=== PATIENT | male | born 1985 | race Caucasian/White ===

== ENCOUNTER 2022-09-07 11:27 | Emergency (ER) | payer OTHER, SELFPAY ==
--- NOTE | ~2022-09-07 | XR_ITS ---
EXAMINATION: XR CHEST CLINICAL INFORMATION: Shortness of breath, cough and wheezing. COMPARISON: Chest and RIBS dated 08/07/2012. TECHNIQUE: 2 views of the chest were obtained. FINDINGS: No significant abnormality is noted involving the heart, lungs, mediastinum, bony thorax or soft tissues. XR/XR chest 2V IMPRESSION: No acute cardiopulmonary process.
[2022-09-07 12:20] VITALS: BP 120/85; PULSE 78; RESP 18; TEMP 36.8; O2SAT 99; BMI 20.3
--- NOTE | 2022-09-07 12:20 | ED.ASTHMA ---
HPI - Asthma General Chief Complaint: Dyspnea <MULUGETA Ford - Last Filed: 09/07/22 12:24> Stated Complaint: Asthma <MULUGETA Ford - Last Filed: 09/07/22 12:24> Time Seen by Provider: 09/07/22 13:05 <MULUGETA Ford - Last Filed: 09/07/22 12:24> Source: patient <Iris Jennings NP - Last Filed: 09/07/22 14:34> Mode of arrival: ambulatory <Iris Jennings NP - Last Filed: 09/07/22 14:34> Limitations: no limitations <Iris Jennings NP - Last Filed: 09/07/22 14:34> History of Present Illness HPI Narrative: 37-year-old male past medical history of asthma presents to the emergency department today with complaints of sore throat, congestion, and difficulty breathing. He believes he is having an asthma attack. He states he last used his albuterol nebulizer at home at 7:00 a.m. this morning with moderate effect and reduction in symptoms. He states he smokes both tobacco and marijuana and smoked this morning. He denies any known illness, sick contacts, environmental exposures, fever, chills, chest pain, abdominal pain, constipation, or diarrhea. <Iris Jennings NP - Last Filed: 09/07/22 14:34> MD complaint: asthma attack <Iris Jennings NP - Last Filed: 09/07/22 14:34> Onset (ago): day(s) (1) <Iris Jennings NP - Last Filed: 09/07/22 14:34> Severity: moderate <Iris Jennings NP - Last Filed: 09/07/22 14:34> Context: none known <Iris Jennings NP - Last Filed: 09/07/22 14:34> Associated symptoms: dry cough <Iris Jennings NP - Last Filed: 09/07/22 14:34> Related Data Current Asthma Therapy: inhaled bronchodilator <Iris Jennings NP - Last Filed: 09/07/22 14:34> Home Medications: Previous Rx's Medication Instructions Recorded albuterol sulfate 2.5 mg/3 mL 2.5 mg (3 mL) inhalation Q4-6H PRN 09/07/22 (0.083 %) solution for nebulization shortness of breath or wheezing #90 mL albuterol sulfate 90 mcg/actuation 1 inh inhalation Q6H PRN shortness 09/07/22 aerosol inhaler of breath or wheezing #6.7 grams prednisone 20 mg tablet 60 mg PO BID 5 days #30 tabs 09/07/22 <MULUGETA Ford - Last Filed: 09/07/22 12:24> Allergies/Adverse Reactions: Allergies Allergy/AdvReac Type Severity Reaction Status Date / Time No Known Drug Allergies Allergy Mild NONE Unverified 06/07/20 15:40 [NO KNOWN DRUG ALLERGIES] <MULUGETA Ford - Last Filed: 09/07/22 12:24> Review of Systems Review of Systems: In addition to documented HPI above, the additional ROS was obtained: Constitutional: No Weight loss, No Fever, No Chills ENT/Mouth: No Ear Pain, No Sinus Pain, No Hoarseness, No sore throat, No Rhinorrhea, No Swallowing Difficulty Cardiovascular: No Chest Pain Respiratory: No Cough, No Sputum, No Wheezing Gastrointestinal: No Nausea, No Vomiting, No Diarrhea, No Constipation, No Abdominal pain Musculoskeletal: No joint pain, No Myalgias, No Joint Swelling Skin: No Skin Lesions, No rash Neuro: No Weakness, No Numbness, No Paresthesias <Iris Jennings NP - Last Filed: 09/07/22 14:34> Yes all other systems are reviewed and are negative <Iris Jennings NP - Last Filed: 09/07/22 14:34> [facility] Past Medical History Attestation statement: The following information was validated with the patient. <Iris Jennings NP - Last Filed: 09/07/22 14:34> Source: old records reviewed <Iris Jennings NP - Last Filed: 09/07/22 14:34> Social History Social History: Social History Advance Directives: No Advance Directives Information Provided: No <MULUGETA Ford - Last Filed: 09/07/22 12:24> Physical Exam Vital Signs: Vital Signs: Last Vital Signs Temp 98.2 F 09/07/22 12:20 Pulse 78 09/07/22 12:20 Resp 18 09/07/22 12:20 BP 120/85 09/07/22 12:20 Pulse Ox 99 09/07/22 12:20 O2 Del Method 09/07/22 12:20 BMI result Body Mass Index 20.3 <MULUGETA Ford - Last Filed: 09/07/22 12:24> Vital Signs: Last Vital Signs Temp 98.2 F 09/07/22 12:20 Pulse 78 09/07/22 12:20 Resp 18 09/07/22 12:20 BP 120/85 09/07/22 12:20 Pulse Ox 99 09/07/22 12:20 O2 Del Method 09/07/22 12:20 BMI result Body Mass Index 20.3 <Iris Jennings NP - Last Filed: 09/07/22 14:34> Const: General: cooperative, alert and awake <Iris Jennings LUNCHROOM ATTENDANT - Last Filed: 09/07/22 14:34> Nutritional Appearance: average body habitus <Iris Jennings NP - Last Filed: 09/07/22 14:34> Orientation/consciousness: patient oriented x3 <Iris Jennings NP - Last Filed: 09/07/22 14:34> Limitations: no limitations <Iris Jennings NP - Last Filed: 09/07/22 14:34> HEENT: Head: Yes normal to inspection and Yes atraumatic <Iris Jennings LUNCHROOM ATTENDANT - Last Filed: 09/07/22 14:34> Ears: hearing grossly normal bilaterally <Iris Jennings NP - Last Filed: 09/07/22 14:34> General nose exam: Normal external nose present <Iris Jennings NP - Last Filed: 09/07/22 14:34> Face and sinus: Yes normal facial exam <Iris Jennings NP - Last Filed: 09/07/22 14:34> Mouth: Normal oral and palatal mucosa present <Iris Jennings NP - Last Filed: 09/07/22 14:34> Eyes: General: appearance normal, both eyes and all related structures <Iris Jennings, LUNCHROOM ATTENDANT - Last Filed: 09/07/22 14:34> Visual Miller: normal visual miller by confrontation <Iris Jennings, LUNCHROOM ATTENDANT - Last Filed: 09/07/22 14:34> Alignment and Position: alignment normal <Iris Jennings, LUNCHROOM ATTENDANT - Last Filed: 09/07/22 14:34> Periorbital: periorbital findings normal <Iris Jennings, LUNCHROOM ATTENDANT - Last Filed: 09/07/22 14:34> Eyelids: Yes eyelids normal <Iris Jennings, LUNCHROOM ATTENDANT - Last Filed: 09/07/22 14:34> Conjunctivae: conjunctivae normal <Iris Jennings, LUNCHROOM ATTENDANT - Last Filed: 09/07/22 14:34> Sclerae: sclerae normal <Iris Jennings, LUNCHROOM ATTENDANT - Last Filed: 09/07/22 14:34> Corneas: corneas normal <Iris Jennings, LUNCHROOM ATTENDANT - Last Filed: 09/07/22 14:34> Pupils: Equal, round and reactive pupils present <Iris Jennings, LUNCHROOM ATTENDANT - Last Filed: 09/07/22 14:34> EOM: EOMs intact bilaterally <Iris Jennings, LUNCHROOM ATTENDANT - Last Filed: 09/07/22 14:34> Neck: Neck: Yes normal visual inspection and Yes full ROM <Iris Jennings, LUNCHROOM ATTENDANT - Last Filed: 09/07/22 14:34> Chest: Chest palpation & inspection: normal inspection of the chest <Iris Jennings, LUNCHROOM ATTENDANT - Last Filed: 09/07/22 14:34> Resp: Effort & Inspection: normal respiratory effort and Actively coughing Quality: dry <Iris Jennings, LUNCHROOM ATTENDANT - Last Filed: 09/07/22 14:34> Auscultation: wheezes inspiratory wheezes and throughout <Iris Jennings, LUNCHROOM ATTENDANT - Last Filed: 09/07/22 14:34> Cardio: Rate: regular rate <Iris Jennings, LUNCHROOM ATTENDANT - Last Filed: 09/07/22 14:34> Rhythm: regular rhythm <Iris Jennings, LUNCHROOM ATTENDANT - Last Filed: 09/07/22 14:34> Back/Spine/Pelvis: Cervical Spine: cervical ROM normal <Iris Ana Cristinalucina, LUNCHROOM ATTENDANT - Last Filed: 09/07/22 14:34> Thoracic/Lumbar Spine: thoraco-lumbar ROM normal <Iris Milindnicolasa, LUNCHROOM ATTENDANT - Last Filed: 09/07/22 14:34> Skin: General skin exam: no rashes or lesions noted <Iris Ana Cristinalucina, LUNCHROOM ATTENDANT - Last Filed: 09/07/22 14:34> Neuro: General: patient oriented x3, tone normal and moves all extremities <Iris Milindnicolasa, LUNCHROOM ATTENDANT - Last Filed: 09/07/22 14:34> Cranial nerves: Yes Equal, round and reactive pupils present <Iris Ana Cristinalucina, LUNCHROOM ATTENDANT - Last Filed: 09/07/22 14:34> Cognition (Neuro): normal cognition <Iris Ana Cristinalucina, LUNCHROOM ATTENDANT - Last Filed: 09/07/22 14:34> Gait exam (Neuro): Normal gait present <Iris Ana Cristinalucina, LUNCHROOM ATTENDANT - Last Filed: 09/07/22 14:34> Motor exam (neuro): 5/5 motor strength present throughout <Iris Jennings, LUNCHROOM ATTENDANT - Last Filed: 09/07/22 14:34> Extrem: General: Yes normal to inspection, Yes full ROM and Yes capillary refill normal <Iris Ana Cristinalucina LUNCHROOM ATTENDANT - Last Filed: 09/07/22 14:34> Psych: Appearance: grossly normal <Iris Milindnicolasa, LUNCHROOM ATTENDANT - Last Filed: 09/07/22 14:34> Mental Status: mental status grossly normal <Iris Pluchetalscott LUNCHROOM ATTENDANT - Last Filed: 09/07/22 14:34> Speech and movement: Normal speech and movement present <Irisrani Jennings, LUNCHROOM ATTENDANT - Last Filed: 09/07/22 14:34> Affect: normal affect <Irisrani Jennings, LUNCHROOM ATTENDANT - Last Filed: 09/07/22 14:34> Attitude: cooperative <Iris Jennings, LUNCHROOM ATTENDANT - Last Filed: 09/07/22 14:34> Thought process: Normal thought process present <Iris Jennings NP - Last Filed: 09/07/22 14:34> Thought content: Normal thought content present <Iris Jennings NP - Last Filed: 09/07/22 14:34> Course Course Course Narrative: E- 12:30PM - 37yoM c PMHx of asthma presenting to the ED with complaints of generalized fatigue/malaise, nasal congestion/rhinorrhea, sore throat and a productive cough with shortness of breath/chest tightness that started yesterday. Reports he ran out of his albuterol inhaler and will need refill on his albuterol inhaler and albuterol for the nebulizer. Denies recent travel or sick contacts or any other symptoms complaints or concerns at this time. On exam patient has decreased breath sounds and wheezing on expiration. No rales/rhonchi noted. Oxygen 96% on room air. Vital signs are all stable. Patient is stable he can go back to the waiting room. Plan: COVID/RSV/flu swab and chest x-ray ordered at this time patient will go to [facility]. <MULUGETA Ford - Last Filed: 09/07/22 12:24> RME- 12:30PM - 37yoM c PMHx of asthma presenting to the ED with complaints of generalized fatigue/malaise, nasal congestion/rhinorrhea, sore throat and a productive cough with shortness of breath/chest tightness that started yesterday. Reports he ran out of his albuterol inhaler and will need refill on his albuterol inhaler and albuterol for the nebulizer. Denies recent travel or sick contacts or any other symptoms complaints or concerns at this time. On exam patient has decreased breath sounds and wheezing on expiration. No rales/rhonchi noted. Oxygen 96% on room air. Vital signs are all stable. Patient is stable he can go back to the waiting room. Plan: COVID/RSV/flu swab and chest x-ray ordered at this time patient will go to [facility]. 1340: Albuterol neb treatment and prednisone ordered <Iris Jennings NP - Last Filed: 09/07/22 14:34> Medications Administered Discontinued Medications Generic Name Dose Route Start Last Admin Trade Name Freq PRN Reason Stop Dose Admin Albuterol Sulfate 2.5 mg/ 5 mg 09/07/22 13:35 09/07/22 13:49 Albuterol Sulfate 2.5 mg INHALE 09/07/22 13:36 5 mg ONCE ONE Administration Prednisone 60 mg 09/07/22 13:35 09/07/22 13:47 Prednisone 20 Mg Tablet PO 09/07/22 13:36 60 mg ONCE ONE Administration <MULUGETA Ford - Last Filed: 09/07/22 12:24> Medications Administered Discontinued Medications Generic Name Dose Route Start Last Admin Trade Name Freq PRN Reason Stop Dose Admin Albuterol Sulfate 2.5 mg/ 5 mg 09/07/22 13:35 09/07/22 13:49 Albuterol Sulfate 2.5 mg INHALE 09/07/22 13:36 5 mg ONCE ONE Administration Prednisone 60 mg 09/07/22 13:35 09/07/22 13:47 Prednisone 20 Mg Tablet PO 09/07/22 13:36 60 mg ONCE ONE Administration <Iris Jennings NP - Last Filed: 09/07/22 14:34> Medical Decision Making Medical Decision Making MDM Narrative: 37-year-old male past medical history of asthma presents to the emergency department today with complaints of sore throat, congestion, and difficulty breathing for over one day. On initial exam patient with inspiratory wheezing throughout lung miller. Albuterol neb treatment and prednisone given. On repeat exam lung sounds CTA throughout. Chest x-ray unremarkable. Serology negative for influenza a/B, RSV, COVID, strep. Patient states he is an active tobacco and marijuana smoker. Patient educated on smoking cessation and changing route of marijuana ingestion to decrease asthma risk factors. Patient states he feels comfortable going home, however; he does not have any refills for his albuterol nebulizer or rescue inhaler. Plan to prescribe albuterol nebulizer, rescue inhaler, and 5 day course of prednisone to patient's preferred pharmacy. HPI, PE, diagnostics, and plan discussed with patient with no unanswered questions at this time. Recommended to return to the hospital with worsening shortness of breath, fever despite use of Tylenol Motrin, chest pain, or any other emergent symptoms that are concerning. Recommended follow-up with his primary care provider for further recommendations and management. <Iris Jennings NP - Last Filed: 09/07/22 14:34> Lab Data Labs: Lab Results 09/07/22 09/07/22 Range/Units 13:05 13:25 Influenza Type A (PCR) NEGATIVE (Negative) Influenza Type B (PCR) NEGATIVE (Negative) RSV RNA Qual (PCR) NEGATIVE (Negative) SARS-CoV-2 RNA (RT-PCR) NEGATIVE (Negative) S. pyogenes GrpA ODETTE Negative (Negative) <MULUGETA Ford - Last Filed: 09/07/22 12:24> Lab Results 09/07/22 09/07/22 Range/Units 13:05 13:25 Influenza Type A (PCR) NEGATIVE (Negative) Influenza Type B (PCR) NEGATIVE (Negative) RSV RNA Qual (PCR) NEGATIVE (Negative) SARS-CoV-2 RNA (RT-PCR) NEGATIVE (Negative) S. pyogenes GrpA ODETTE Negative (Negative) <Iris Jennings NP - Last Filed: 09/07/22 14:34> Discharge Plan Discharge Clinical Impression: Asthma with exacerbation <MULUGETA Ford - Last Filed: 09/07/22 12:24> Patient Disposition: Home, Self-Care <MULUGETA Ford - Last Filed: 09/07/22 12:24> Instructions: Asthma (ED), How to Stop Smoking (ED), How to Use a Metered-Dose Inhaler (ED), How to Use a Nebulizer (ED), Wheezing (ED), How Your Lungs Work (ED) <MULUGETA Ford - Last Filed: 09/07/22 12:24> Prescriptions: New albuterol sulfate 2.5 mg /3 mL (0.083 %) solution for nebulization 2.5 mg inhalation Q4-6H PRN (Reason: shortness of breath or wheezing) Qty: 90 0RF albuterol sulfate 90 mcg/actuation HFA aerosol inhaler 1 inh inhalation Q6H PRN (Reason: shortness of breath or wheezing) Qty: 6.7 0RF prednisone 20 mg tablet 60 mg PO BID 5 Days Qty: 30 0RF <MULUGETA Ford Last Filed: 09/07/22 12:24> Referrals: [facility] Family Medicine [Provider Group] [facility] Primary Care, [place] [Provider Group] [facility] [Provider Group] <MULUGETA Ford - Last Filed: 09/07/22 12:24> Stand Alone Forms: Work/School Release <MULUGETA Ford - Last Filed: 09/07/22 12:24> Interventions: ED Discharge Assessment Last Done: 09/07/22 14:27 <MULUGETA Ford - Last Filed: 09/07/22 12:24> Discharge Date/Time: 09/07/22 14:28 <MULUGETA Ford - Last Filed: 09/07/22 12:24> Print Language: Romansh <MULUGETA Ford - Last Filed: 09/07/22 12:24>
[2022-09-07 13:36] LABS: Strep A Nucleic Acid Negative (Negative)
[2022-09-07] MEDS: predniSONE 20 MG TABLET 60 MG PO (13:47)
[2022-09-07] MEDS: Albuterol Sulfate 2.5 MG, Albuterol Sulfate (0.083%) 2.5 MG 5 MG INHALE (13:49)
[2022-09-07 14:03] LABS: Influenza A PCR NEGATIVE (Negative); Influenza B PCR NEGATIVE (Negative); Resp Syncy Virus RNA Qual PCR NEGATIVE (Negative); SARS COV2 PCR INHOUSE NEGATIVE (Negative)
== END 2022-09-07 14:28 | disposition home or self-care (01) ==
PROVIDERS: Physician Assistant Medical; Emergency Provider Emergency Medicine
DX: J45.901 Unspecified asthma with (acute) exacerbation (principal); R06.02 Shortness of breath; R05.9 Cough, unspecified; Z20.822 Contact with and (suspected) exposure to COVID-19
CPT/HCPCS: 0241U; 36415; 71046; 87651; 99283